=== PATIENT | female | born 1955 | race Caucasian/White ===

== ENCOUNTER → 2016-10-12 | Outpatient (CLI) | payer BC ==
[~2016-10-12] MED LIST: ADVAIR DIS1 PUFF/DOS IH; BISACODYL5 MG PO; CARDIZEM CD240 M1 PO; CELEBREX200 MG PO; CEPACOL SORE T1 EACH PO; COMPAZINE10 MG PO; CYMBALTA60 MG PO; DULCOLAX-DPS10 MG PR; DYAZIDE 37.5-21 EACH PO; FEOSOL-DPS325 MG PO; FLEXERIL-DPS10 MG PO; MAGOX 400400 MG PO; MAXZIDE-25 DPS1 TAB PO; MILK OF MAGNESI10 ML PO; MONTELUKAST SOD10 MG PO; NASONEX NASAL S17 GM NS; NORCO 5-325 TA1 EACH PO; PREVACID30 MG PO; REQUIP1 MG PO; SENOKOT DPS8.6 MG PO; THERA1 EACH PO; TOPROL XL DPS50 MG PO; TYLENOL DPS325 MG PO; XARELTO10 MG PO
--- NOTE | ~2016-10-12 | ECH ---
Transthoracic Echocardiography Report (TTE) Demographics Patient Name JERRI CARLOS Date of Study 10/12/2016 Patient Number [id number] Visit Number [id number] Date of 1955 Room Number Accession Number [id number] Gender Female Age 61 year(s) Referring Cee Valenzuela Merchandise Coordinator Amparo Vinson [facility] Physician Aditya Jacobo Physician Interpreting Irina Estrada Book Jacket Cover Machine Operator Physician Supervising Ordering Physician Cee Valenzuela MD/MLP Nurse Stress Sheet Metal Worker Supervisor Conclusions Summary Technically fair exam. The estimated left ventricular ejection fraction is 55%. Mild to moderate left ventricular hypertrophy. The left atrium is mildly dilated by LA volume index measurement. There is no evidence of patent foramen ovale or atrial septal defect by color Doppler. No significant valvular abnormalities. Procedure Type of Study TTE procedure:Echo Complete SF. Procedure Date Date: 10/12/2016 Start: 10:55 AM Technical Quality: Fair due to poor acoustical window. Indications:Hypertension. Additional Indications:ischemic right hand Appropriate Use Criteria: 8 Height: 64 inches Weight: 205 pounds BSA: 1.98 m Rhythm: Within normal limits HR: 65 bpm BP: 158/71 mmHg M-Mode/2D Measurements LV Diastolic Dimension: 4.59 cm LV Systolic Dimension: 2.88 cm LV Septum Diastolic: 0.95 cm LV PW Diastolic: 1.31 cm AO Root Dimension: 2.85 cm Cardiac Output: 3.66 l/min LA Dimension: 4.26 cm Cardiac Index: 1.85 l/min*m RV Diastolic Dimension: 3.52 cm LA volume index: 37 ml/m LVOT: 1.62 cm LVOT VTI: 27.31 cm RV Base: 2.7 cm LV Stroke volume: 56.26 ml RV Mid: 2 cm LV Stroke volume index: 28.41 ml/m RV Length: 6.1 cm TAPSE: 2.2 cm TDI-S': 17 cm/s Doppler Measurements AV Peak Velocity: 1.6 m/s MV Peak E-Wave: 0.86 m/s AV Peak Gradient: 10.24 mmHg MV Peak A-Wave: 0.82 m/s AV Mean Gradient: 5.17 mmHg MV E/A Ratio: 1.05 LVOT Peak Velocity: 1.29 m/s MV P1/2t: 60.9 msec AV Area (Continuity):1.63 cm MV Deceleration Time: 203.1 msec MV Area (PHT): 3.61 cm PV Peak Velocity: 0.99 m/s PV Peak Gradient: 3.95 mmHg RA Area: 12.38 cm Findings Left Ventricle The left ventricle is normal in size . Mild to moderate left ventricular hypertrophy. Diastolic assessment reveals normal relaxation. Right Ventricle Normal right ventricle structure and function. Left Atrium The left atrium is mildly dilated by LA volume index measurement. There is no evidence of patent foramen ovale or atrial septal defect by color Doppler. Right Atrium Normal right atrial size. Mitral Valve Normal mitral valve structure and function. Trivial mitral regurgitation by color Doppler. Aortic Valve Normal aortic valve structure and function. Tricuspid Valve Normal tricuspid valve structure and function. Pulmonic Valve Normal pulmonic valve structure and function. Pericardial Effusion No evidence of pericardial effusion. Miscellaneous Visualized portions of the aortic root and ascending aorta appear normal in size. Pleural Effusion No evidence of pleural effusion. Contractility Score LV regional wall motion:(0-Non visualized 1-Normal 2-Hypokinesis 3-Akinesis 4-Dyskinesis 5-Aneurysm) Signature
== END | disposition home or self-care (01) ==
LOC: CARD 10-10 15:37 → RAD.S 10-17 09:00 → CARD 10-17 09:00
DX: I99.8 Other disorder of circulatory system (principal); I77.6 Arteritis, unspecified; I51.7 Cardiomegaly

== ENCOUNTER 2017-04-16 13:38 | Emergency (ER) | payer BC ==
--- NOTE | ~2017-04-16 | ER ---
ADMIT: 04/16/2017 RM/LOC: ER [facility] MR#: [id number] [address] [id number] LATONYA CARLOSMichael Call [address] [place] [address] Emergency Room Report SEX: F AGE: 62 : 1955 DATE: 04/16/2017 A 62-year-old comes to the Emergency Department, being sent from [place] where she went for increasing shortness of breath for the past several days and chronic nonproductive cough. Apparently, they did do a D-dimer over there and sent her here for evaluation for PE. See T-sheet for remainder of history and physical. CTA of the chest revealed no PE, suspicious for bronchitis. The patient given a prescription for Z-John. Instructed to follow up as needed with her primary doctor if not better in 3 to 4 days. José Miguel Ham MD/ aj JOB #: [id number] CC: Bon Clifford MD, Attending Physician UNKNOWN, Family Physician
== END 2017-04-16 16:40 | disposition home or self-care (01) ==
LOC: ER 13:38
DX: J40 Bronchitis, not specified as acute or chronic (principal); I10 Essential (primary) hypertension; K21.9 Gastro-esophageal reflux disease without esophagitis; M79.7 Fibromyalgia; Z88.8 Allergy status to other drugs, medicaments and biological substances; Z79.899 Other long term (current) drug therapy